=== PATIENT | female | born 1945 | race Caucasian/White ===

== ENCOUNTER 2017-02-25 15:42 | Emergency (ER) | payer OTHER ==
[2017-02-25 15:53] VITALS: BP 153/77; PULSE 95; TEMP 98.6; BMI 24.7
--- NOTE | 2017-02-25 16:54 | PDOC ---
History of Present Illness - General History Source: Patient Exam Limitations: No Limitations - History of Present Illness Initial Comments: 02/25/17 17:14 The patient is a 71 year old female, with a significant past medical history of Cervica CA, HTN, HLD and ETOH abuse, who presents to the emergency department with mutliple bruises around her body and a head injury. The patient fell a few days ago in the bathtub. She reports that she was drinking alcohol and was inebriated when she fell. She reports that she does not remember if she lost consciousness or not because of her inebriated state of mind. Today the family went to visit her and found her with all the reported bruises, brought her to the ED for further evaluation. The patient denies chest pain, shortness of breath, headache and dizziness. Denies fever, chills, nausea, vomit, diarrhea and constipation. Denies dysuria, frequency, urgency and hematuria. Allergies: None Past surgical history: Colon resection Social history: Alcohol abuse. Tobacco use (20 daily). No drug use reported <Dimitry Huitron - Last Filed: 02/25/17 17:14> <Alem Carter - Last Filed: 02/25/17 19:49> - General Chief Complaint: Pain Stated Complaint: FALL, PAIN Time Seen by Provider: 02/25/17 16:10 Past History <Dimitry Huitron - Last Filed: 02/25/17 17:14> - Past Medical History Cancer: Yes (CERVICAL) HTN: Yes Hypercholesterolemia: Yes Psychiatric Problems: Yes - Surgical History Abdominal Surgery: Yes (COLON RESECTION) - Psycho/Social/Smoking Cessation Hx Anxiety: No Suicidal Ideation: No Smoking Status: Yes Smoking History: Current every day smoker Number of Cigarettes Smoked Daily: 20 Information on smoking cessation initiated: No Hx Alcohol Use: No Drug/Substance Use Hx: No <Alem Carter - Last Filed: 02/25/17 19:49> - Past Medical History Allergies/Adverse Reactions: Allergies Allergy/AdvReac Type Severity Reaction Status Date / Time UNKNOWN PILLS Allergy Swelling Uncoded 02/25/17 15:49 Home Medications: Ambulatory Orders Simvastatin [Zocor] 5 mg PO DAILY 05/29/12 Triamterene/Hydrochlorothiazid [Triamterene-Hctz 75-50 mg Tab] 1 each PO DAILY 05/29/12 Escitalopram Oxalate [Lexapro -] 10 mg PO DAILY 02/25/17 Review of Systems - Review of Systems Able to Perform ROS?: Yes Comments:: 02/25/17 17:14 GENERAL/CONSTITUTIONAL: No fever or chills. No weakness. HEAD, EYES, EARS, NOSE AND THROAT: (+) Head trauma. No change in vision. No ear pain or discharge. No sore throat. CARDIOVASCULAR: No chest pain or shortness of breath RESPIRATORY: No cough, wheezing, or hemoptysis. GASTROINTESTINAL: No nausea, vomiting, diarrhea or constipation. GENITOURINARY: No dysuria, frequency, or change in urination. MUSCULOSKELETAL: No joint or muscle swelling or pain. No neck or back pain. SKIN: (+) Ecchymosis on bilateral shoulder, flank and right elbow NEUROLOGIC: No headache, vertigo, loss of consciousness, or change in strength/ sensation. ENDOCRINE: No increased thirst. No abnormal weight change HEMATOLOGIC/LYMPHATIC: No anemia, easy bleeding, or history of blood clots. ALLERGIC/IMMUNOLOGIC: No hives or skin allergy. <Dimitry Huitron - Last Filed: 02/25/17 17:14> *Physical Exam - Vital Signs Last Vital Signs Temp Pulse Resp BP Pulse Ox 98.6 F 95 H 18 153/77 97 02/25/17 15:44 02/25/17 15:44 02/25/17 15:44 02/25/17 15:44 02/25/17 15:44 - Physical Exam Comments: 02/25/17 17:15 GENERAL: Awake, alert, and fully oriented, in no acute distress HEAD: No signs of trauma, normocephalic, atraumatic EYES: PERRLA, EOMI, sclera anicteric, conjunctiva clear ENT: Auricles normal inspection, hearing grossly normal, nares patent, oropharynx clear without exudates. Moist mucosa NECK: Normal ROM, supple, no lymphadenopathy, JVD, or masses LUNGS: No distress, speaks full sentences, clear to auscultation bilaterally HEART: Regular rate and rhythm, normal S1 and S2, no murmurs, rubs or gallops, peripheral pulses normal and equal bilaterally. ABDOMEN: Soft, nontender, normoactive bowel sounds. No guarding, no rebound. No masses EXTREMITIES: Normal inspection, Normal range of motion, no edema. No clubbing or cyanosis. NEUROLOGICAL: Cranial nerves II through XII grossly intact. Normal speech, no focal sensorimotor deficits SKIN: (+) Posterior left and right shoulde ecchymosis 10 cm in size. Right flank ecchymosis 10 cm in size and right elbow ecchymosis 10 cm in size. <Dimitry Huitron - Last Filed: 02/25/17 17:14> - Vital Signs Last Vital Signs Temp Pulse Resp BP Pulse Ox 98.6 F 95 H 18 153/77 97 02/25/17 15:44 02/25/17 15:44 02/25/17 15:44 02/25/17 15:44 02/25/17 15:44 <Alem Carter - Last Filed: 02/25/17 19:49> Medical Decision Making - Medical Decision Making 02/25/17 19:42 71-year-old female was brought in by concerned family. The patient has a long history of alcoholism and fell sometime this weekend The family saw that she has significant bruising to her back and insisted she come to the emergency department The patient states that she thinks she fell backwards in the tub on Sunday at which time she was intoxicated Patient is currently alert and ambulatory Patient denies any fever, chills, extremity weakness, numbness, tingling, chest pain, abdominal pain Her complaint is bruising on her upper back . He has associated pain She has full range of motion is of her extremities with no deformity She has slightly age, ecchymosis to her posterior right and left shoulders CT of her head did not show any acute intracranial pathology CT of her C-spine was negative for any acute injuries Chest x-ray was negative for any pneumothorax Depression trauma/subacute/ecchymosis to her back/small scalp hematoma <Alem Carter - Last Filed: 02/25/17 19:49> *DC/Admit/Observation/Transfer - Attestations Scribe Attestion: 02/25/17 17:16 Documentation prepared by Dimitry Huitron, acting as medical anthropology director for Alem Carter MD <Dimitry Huitron - Last Filed: 02/25/17 17:14> <Aelm Carter - Last Filed: 02/25/17 19:49> Diagnosis at time of Disposition: Bruising, History of recent fall Traumatic injury of head Qualifiers: Encounter type: initial encounter Qualified Code(s): S09.90XA - Unspecified injury of head, initial encounter - Discharge Dispostion Disposition: HOME Condition at time of disposition: Stable - Referrals Referrals: Surinder Dial MD [Primary Care Provider] - - Patient Instructions Printed Discharge Instructions: DI for Closed Head Injury, DI for Thoracic Back Pain Additional Instructions: please avoid excessive alcohol use
== END 2017-02-25 20:06 | disposition home or self-care (01) ==
LOC: JER 15:42
DX: S09.8XXA Other specified injuries of head, initial encounter (principal); S40.012A Contusion of left shoulder, initial encounter; S40.011A Contusion of right shoulder, initial encounter; S50.01XA Contusion of right elbow, initial encounter; S30.1XXA Contusion of abdominal wall, initial encounter; W18.2XXA Fall in (into) shower or empty bathtub, initial encounter; Y93.E1 Activity, personal bathing and showering; Y92.012 Bathroom of single-family (private) house as the place of occurrence of the external cause; F10.10 Alcohol abuse, uncomplicated; I10 Essential (primary) hypertension; E78.00 Pure hypercholesterolemia, unspecified; F17.210 Nicotine dependence, cigarettes, uncomplicated; Z85.41 Personal history of malignant neoplasm of cervix uteri
CPT/HCPCS: 70450-TC; 71020-TC; 72100-TC; 72125-TC; 99282-25

== ENCOUNTER 2019-03-11 09:21 | Day surgery (SDC) | payer OTHER ==
[2019-03-10 08:38] VITALS: BMI 24.7
[2019-03-11] MEDS ORDERED: TROPICAMIDE 1% OPHTH SOLN 15 ML BOTTLE ONE (09:33)
[2019-03-11] MEDS ORDERED: FLURBIPROFEN 0.03% OPHTH SOLN 2.5 ML BOTTLE ONE (09:33)
[2019-03-11] MEDS ORDERED: PHENYLEPHRINE 2.5% OPHTH SOLN 15 ML BOTTLE ONE (09:33)
[2019-03-11] MEDS ORDERED: CIPROFLOXACIN HCL 0.3% OPHTH 2.5ML BOTTLE ONE ×2 (09:33→09:53)
[2019-03-11] MEDS ORDERED: CYCLOPENTOLATE HCL 1% OPHTH SOLN 2 ML BOTTLE ONE (09:33)
[2019-03-11] MEDS: TROPICAMIDE 1% OPHTH SOLN 15 ML BOTTLE OP SCH ×3 (09:55→10:05)
[2019-03-11] MEDS: FLURBIPROFEN 0.03% OPHTH SOLN 2.5 ML BOTTLE OP SCH ×3 (09:55→10:05)
[2019-03-11] MEDS: CYCLOPENTOLATE HCL 1% OPHTH SOLN 2 ML BOTTLE OP SCH ×3 (09:55→10:05)
[2019-03-11] MEDS: CIPROFLOXACIN HCL 0.3% OPHTH 2.5ML BOTTLE OP SCH ×3 (09:55→10:05)
[2019-03-11] MEDS: PHENYLEPHRINE 2.5% OPHTH SOLN 15 ML BOTTLE OP SCH ×3 (09:55→10:05)
[2019-03-11 09:59] VITALS: TEMP 98.3
[2019-03-11] MEDS ORDERED: LIDOCAINE HCL 4% TOPICAL SOLN (50 ML/BOTTLE) TP ONE (11:03)
[2019-03-11] MEDS ORDERED: POVIDONE-IODINE 5% OPHTHALMIC PREP 30 ML SOLUTION OD ONE (11:04)
[2019-03-11] MEDS ORDERED: MIDAZOLAM HCL 2 MG/2 ML SINGLE DOSE VIAL ONE (11:05)
[2019-03-11] MEDS ORDERED: LIDOCAINE HCL 1% PRESERVATIVE FREE - 30ML VIAL IO ONE (11:09)
[2019-03-11] MEDS ORDERED: CHONDROITIN SU A/HYALUR SOD 1 KIT IO ONE (11:09)
[2019-03-11] MEDS ORDERED: BSS (NA/CA/MG/K) BALANCED SALT SOLUTION OPHTH SOLN 15 ML BOTTLE OD ONE (11:09)
[2019-03-11] MEDS ORDERED: EPINEPHrine/PF 1 MG/1 ML (1:1,000) AMPULE SQ ONE (11:13)
[2019-03-11] MEDS ORDERED: ONDANSETRON 4 MG/2 ML VIAL IVPUSH PRN (12:17)
[2019-03-11] MEDS ORDERED: ACETAMINOPHEN 325 MG TABLET (FP) PO PRN (12:17)
[2019-03-11 12:22] VITALS: BP 150/69; PULSE 98
[2019-03-11] MEDS ORDERED: LACTATED RINGERS SOLUTION 1,000 ML IV SCH (12:30)
--- NOTE | 2019-03-17 21:49 | SPEC ---
DATE OF OPERATION: 03/11/2019 PREOPERATIVE DIAGNOSIS: Cataract, right eye. POSTOPERATIVE DIAGNOSIS: Cataract, right eye. OPERATION: Planned phacoemulsification with posterior chamber lens implantation, right eye. SURGEON: Kerry Solo M.D. DIMPLING MACHINE OPERATOR: None. ANESTHESIA: Topical. COMPLICATIONS: None. PROCEDURE: The patient was taken to the operating room and anesthesia began with intravenous fluids and sedation. The patient then received topical anesthesia on the right eye. The patient was prepped and draped in the usual manner for sterile ophthalmic surgery. A speculum was inserted into the right eye. A self-sealing stab incision was made at the 3:00 and 10:00 positions. Viscoat was inserted into the anterior chamber. Using a 2.65 mm keratome, a self-sealing incision was made in temporal location into the anterior chamber. A 360-degree continuous capsulorrhexis was then performed. The nucleus was dislocated with hydrodissection. The nucleus was then removed from the eye with phacoemulsification with posterior capsule remaining intact. Irrigation and aspiration removed the remaining cortex from the eye. The capsule was polished. A posterior chamber lens was inserted in the bag and well centered. The remaining Viscoat was removed from the eye. The wound was self-sealing. Stromal hydration was performed for increased insurance of wound closure. The patient tolerated the procedure well and went to the ambulatory unit in stable condition. KERRY SOLO M.D. [id number]
== END 2019-03-11 12:31 | disposition home or self-care (01) ==
LOC: JASU-SURG 09:21
PROVIDERS: ATTEND Ophthalmology
PROC: 08RJ3JZ Replacement of Right Lens with Synthetic Substitute, Percutaneous Approach (ICD-10-PCS; principal; 2019-03-11 11:00)
DX: H26.9 Unspecified cataract (principal)

== ENCOUNTER 2019-04-15 07:24 | Day surgery (SDC) | payer OTHER | END 2019-04-15 11:04 | disposition home or self-care (01) | LOC: JASU-SURG 07:24 ==

== ENCOUNTER 2023-07-16 16:55 | Observation (INO) | payer OTHER ==
[2023-07-16] MEDS ORDERED: ASPIRIN 81 MG CHEWABLE TABLETS PO ONE (17:34)
[2023-07-16] MEDS ORDERED: FAMOTIDINE 20 MG/50 ML IVPB 20 MG/50 ML MG IVPB ONE ×2 (17:36→18:14)
[2023-07-16] MEDS ORDERED: MAG HYDROX/AL HYDROX/SIMETH 30 ML UNIT-DOSE CUP PO ONE (17:36)
[2023-07-16] MEDS ORDERED: ASPIRIN 81 MG CHEWABLE TABLETS ONE (18:14)
[2023-07-16] MEDS ORDERED: MAG HYDROX/AL HYDROX/SIMETH 30 ML UNIT-DOSE CUP ONE (18:14)
[2023-07-16 18:22] LABS: BASO % 0.4 % (0-2.0); EOS % 2.3 % (0-4.5); HEMATOCRIT 43.2 % (32.4-45.2); HEMOGLOBIN 13.8 GM/dL (10.7-15.3); LYMPH % 38.3 % (8-40); MCH 29.3 pg (25.7-33.7); MCHC 31.8 g/dl (32.0-36.0); MEAN PLT VOLUME 6.9 fl (7.5-11.1); MONO % 8.2 % (3.8-10.2); NEUT % 50.8 % (42.8-82.8); PLATELET COUNT 205 10^3/uL (134-434); RDW 13.8 % (11.6-15.6); WHITE BLOOD COUNT 5.3 K/mm3 (4.0-10.0)
[2023-07-16 18:28] LABS: EPI CELLS 6 /uL (0-25.1); HYALINE CASTS 0 /uL (0-3.1); PH,URINE 5.5 (5.0-8.0); URINE APPEARANCE CLEAR; URINE BACTERIA >9,000 /uL (0-1359); URINE BILIRUBIN NEGATIVE (NEGATIVE); URINE COLOR YELLOW; URINE GLUCOSE (UA) NEGATIVE (NEGATIVE); URINE KETONE NEGATIVE (NEGATIVE); URINE LEUK ESTERASE 1+ (NEGATIVE); URINE NITRITE NEGATIVE (NEGATIVE); URINE PROTEIN 2+ (NEGATIVE); URINE RBC 17 /uL (0-23.9); URINE UROBILINOGEN 0.2 mg/dL (0.2-1.0); URINE WBC 213 /uL (0-25.8)
[2023-07-16 18:43] LABS: BLOOD UREA NITROGEN 28.4 mg/dL (7-18); CALCIUM 8.8 mg/dL (8.5-10.1)
[2023-07-16 18:46] LABS: CREATININE 1.1 mg/dL (0.55-1.3)
[2023-07-16 18:48] LABS: BILIRUBIN,TOTAL 0.9 mg/dL (0.2-1)
[2023-07-16 18:51] LABS: N-TERMINAL BNP 191.4 pg/ml (5-450)
[2023-07-16 19:06] VITALS: BMI 27.4
[2023-07-16] MEDS ORDERED: CEFTRIAXONE 1 GM/50 ML BAG ONE (19:40)
[2023-07-16] MEDS ORDERED: DOCUSATE SODIUM 100 MG CAPSULE (FP) PO PRN (20:04)
[2023-07-16] MEDS ORDERED: ACETAMINOPHEN 1000 MG/100 ML BAG IVPB PRN (20:08)
[2023-07-16] MEDS: SODIUM CHLORIDE 1,000 ML IV SCH (20:24)
[2023-07-17 07:19] LABS: BASO % 0.4 % (0-2.0); EOS % 3.5 % (0-4.5); HEMATOCRIT 38.5 % (32.4-45.2); HEMOGLOBIN 12.4 GM/dL (10.7-15.3); LYMPH % 42.1 % (8-40); MCH 29.8 pg (25.7-33.7); MCHC 32.3 g/dl (32.0-36.0); MEAN CELL VOLUME 92.3 fl (80-96); MEAN PLT VOLUME 7.1 fl (7.5-11.1); MONO % 9.3 % (3.8-10.2); NEUT % 44.7 % (42.8-82.8); PLATELET COUNT 168 10^3/uL (134-434); RBC 4.17 M/mm3 (3.60-5.2); RDW 13.7 % (11.6-15.6); WHITE BLOOD COUNT 4.5 K/mm3 (4.0-10.0)
[2023-07-17 07:30] LABS: POTASSIUM 3.6 mmol/L (3.5-5.1)
[2023-07-17 07:32] LABS: CALCIUM 8.1 mg/dL (8.5-10.1)
[2023-07-17 07:33] LABS: INR 1.07 (0.83-1.09); MAGNESIUM 1.5 mg/dL (1.8-2.4); PROTHROMBIN TIME (PATIENT) 12.4 SEC (9.7-13.0)
[2023-07-17 07:36] LABS: ACTIVATED PTT 27.5 SECONDS (25.2-36.5); CREATININE 1.1 mg/dL (0.55-1.3); PHOSPHOROUS 2.6 mg/dL (2.5-4.9)
[2023-07-17] MEDS ORDERED: MAG HYDROX/AL HYDROX/SIMETH 30 ML UNIT-DOSE CUP PO PRN (07:51)
[2023-07-17] MEDS ORDERED: ALBUTEROL SO4 0.083% IH SOL 2.5 MG/3 ML VIAL.NEB. NEB PRN (10:15)
[2023-07-17] MEDS: LOSARTAN 50MG/HCTZ 12.5MG 1 TAB PO SCH (11:21)
[2023-07-17] MEDS: PANTOPRAZOLE 40 MG TABLET PO SCH (11:22)
[2023-07-17] MEDS: SODIUM CHLORIDE 1,000 ML IV SCH ×2 (12:23→21:15)
[2023-07-17] MEDS ORDERED: ACETAMINOPHEN 325 MG TABLET (FP) PO PRN (20:04)
[2023-07-17] MEDS ORDERED: CEFTRIAXONE 1 GM in DEXTROSE 5%-WATER - 50 ML IVPB SCH (22:00)
[2023-07-18] MEDS ORDERED: MELATONIN 5 MG TABLETS PO PRN (02:25)
[2023-07-18 06:44] VITALS: RESP 18
[2023-07-18 07:39] LABS: HEMATOCRIT 37.6 % (32.4-45.2); HEMOGLOBIN 12.3 GM/dL (10.7-15.3); MCH 30.1 pg (25.7-33.7); MCHC 32.8 g/dl (32.0-36.0); MEAN CELL VOLUME 91.7 fl (80-96); MEAN PLT VOLUME 6.9 fl (7.5-11.1); PLATELET COUNT 155 10^3/uL (134-434); RDW 13.5 % (11.6-15.6); WHITE BLOOD COUNT 4.3 K/mm3 (4.0-10.0)
[2023-07-18 08:00] LABS: POTASSIUM 3.6 mmol/L (3.5-5.1)
[2023-07-18 08:12] LABS: CALCIUM 7.5 mg/dL (8.5-10.1)
[2023-07-18 08:13] LABS: BLOOD UREA NITROGEN 18.1 mg/dL (7-18)
[2023-07-18 08:16] LABS: BILIRUBIN,TOTAL 0.8 mg/dL (0.2-1); CREATININE 0.9 mg/dL (0.55-1.3); TOT PROT 6.4 g/dl (6.4-8.2)
[2023-07-18 08:27] LABS: ALBUMIN 3.1 g/dl (3.4-5.0)
[2023-07-18] MEDS: PANTOPRAZOLE 40 MG TABLET PO SCH (10:59)
[2023-07-18] MEDS: LOSARTAN 50MG/HCTZ 12.5MG 1 TAB PO SCH (10:59)
[2023-07-18 13:28] VITALS: BP 122/61; PULSE 95; TEMP 97.6
== END 2023-07-18 14:05 | disposition home or self-care (01) ==
LOC: JER 16:55 → JERBED 18:56 → J4W 07-17 08:30
PROVIDERS: ADMIT Internal Medicine; ATTEND Internal Medicine
DX: J44.9 Chronic obstructive pulmonary disease, unspecified (principal); E78.5 Hyperlipidemia, unspecified; N39.0 Urinary tract infection, site not specified; Z85.41 Personal history of malignant neoplasm of cervix uteri; Z88.8 Allergy status to other drugs, medicaments and biological substances; Z87.891 Personal history of nicotine dependence
CPT/HCPCS: 36415; 71045-TC-FY; 71250-TC; 76775-TC; 80048; 80053; 81003; 82550; 83735; 83880; 84100; 84484; 85025; 85027; 85610; 85730; 87086; 87186; 93005; 93010; 93306-TC; 96365; 96367; 96375; 99285-25; G0378